=== PATIENT | female | born 1955 | race Caucasian/White ===

== ENCOUNTER 2019-05-21 20:18 | Emergency (ER) | payer BC ==
[2019-05-21 20:36] VITALS: BP 170/91; PULSE 76; RESP 18; TEMP 98.6
--- NOTE | 2019-05-21 20:45 | ED ---
ENT HPI - General Chief complaint: Dental/Oral Stated complaint: Facial swelling, headache Time Seen by Provider: 05/21/19 20:42 Source: patient, RN notes reviewed, old records reviewed Mode of arrival: ambulatory Limitations: no limitations - History of Present Illness Initial comments: This is a 64-year-old female DF for evaluation of tooth pain left frontal tooth pain with history of dental caries disease multiple root canals, thought that just yesterday was put on antibiotics and pain medication or significant swelling swelling of the left side of her face slowing down Into her jaw and then severe pain. Patient denies any fevers is able swallow and is able take medications as directed. She is complains of severe pain unable to get rest fior ble to get comfort. History of dental office before but this pain is worse and she's never had such swelling of her face MD complaint: tooth pain -: days(s) Location: tooth # (Front upper) Severity: severe Severity scale (1-10): 9 Quality: burning, stabbing, aching Consistency: constant Improves with: none Worsens with: none Context-Epistaxis: history of similar Context- Dental: poor dental care Associated Symptoms: pain with swallowing - Related Data Home Medications Medication Instructions Recorded Confirmed Celecoxib [CeleBREX] 200 mg PO DAILY 05/31/14 06/29/14 Cimetidine [Tagamet] 400 mg PO BID 05/31/14 06/29/14 Fenofibrate(Unknown Dose) 1 tab PO DAILY 05/31/14 06/29/14 Fioricet(Unknown Dose) 1 tab PO DIRECTED PRN 05/31/14 06/29/14 HYDROcodone/APAP 7.5-325MG [[place] 1 each PO Q6HR PRN 05/31/14 06/29/14 7.5-325] Propranolol [Inderal] 40 mg PO TID 05/31/14 06/29/14 Sertraline [Zoloft] 100 mg PO DAILY 05/31/14 06/29/14 buPROPion HCL [Wellbutrin] 200 mg PO BID 05/31/14 06/29/14 metFORMIN HCL [Glucophage] 500 mg PO DAILY 05/31/14 06/29/14 Allergies Allergy/AdvReac Type Severity Reaction Status Date / Time metal Allergy Rash/Hives Uncoded 05/21/19 20:35 Review of Systems ROS Statement: Those systems with pertinent positive or pertinent negative responses have been documented in the HPI. ROS Other: All systems not noted in ROS Statement are negative. Past Medical History Past Medical History: Cancer, Diabetes Mellitus, GERD/Reflux, Hypertension, Osteoarthritis (OA) Additional Past Medical History / Comment(s): Hx skin cancer, wound top of head, History of Any Multi-Drug Resistant Organisms: MRSA Date of last positivie culture/infection: 11/25/15 MDRO Source:: Abdomen Past Surgical History: Appendectomy, Back Surgery, Cholecystectomy, Hysterectom y, Joint Replacement, Orthopedic Surgery Additional Past Surgical History / Comment(s): Plantar fascitis rt.foot, rosanna knee replacement, cervical fusion with plate Past Anesthesia/Blood Transfusion Reactions: No Reported Reaction Past Psychological History: Depression Smoking Status: Never smoker Past Alcohol Use History: None Reported Past Drug Use History: None Reported General Exam Limitations: no limitations General appearance: alert, in no apparent distress Head exam: Present: atraumatic, normocephalic, normal inspection Eye exam: Present: normal appearance, PERRL, EOMI. Absent: scleral icterus, conjunctival injection, periorbital swelling ENT exam: Present: normal exam, mucous membranes moist, other (Left frontal tooth does have tenderness to touch no palpable or seen abscess) Neck exam: Present: normal inspection. Absent: tenderness, meningismus, lymphadenopathy Respiratory exam: Present: normal lung sounds bilaterally. Absent: respiratory distress, wheezes, rales, rhonchi, stridor Cardiovascular Exam: Present: regular rate, normal rhythm, normal heart sounds. Absent: systolic murmur, diastolic murmur, rubs, gallop, clicks GI/Abdominal exam: Present: soft, normal bowel sounds. Absent: distended, tenderness, guarding, rebound, rigid Extremities exam: Present: normal inspection, full ROM, normal capillary refill. Absent: tenderness, pedal edema, joint swelling, calf tenderness Back exam: Present: normal inspection Neurological exam: Present: alert, oriented X3, CN II-XII intact Psychiatric exam: Present: normal affect, normal mood Skin exam: Present: warm, dry, intact, normal color. Absent: rash Course Vital Signs 05/21/19 20:32 Temperature 98.6 F Pulse Rate 76 Respiratory 18 Rate Blood Pressure 170/91 O2 Sat by Pulse 96 Oximetry - Reevaluation(s) Reevaluation #1: 05/21/19 23:57 Medical record is reviewed Reevaluation #2: 05/21/19 23:57 Pain is controlled Medical Decision Making - Medical Decision Making 64 female here with severe dental pain tooth pain. Pain is resolved here in the ER swelling is improved computed tomography scan is negative for significant abscess and patient can be discharged home - Lab Data Result diagrams: 05/21/19 21:44 05/21/19 21:44 Lab Results 05/21/19 05/21/19 Range/Units 21:44 21:44 WBC 4.9 (3.8-10.6) k/uL RBC 4.58 (3.80-5.40) m/uL Hgb 13.3 (11.4-16.0) gm/dL Hct 41.5 (34.0-46.0) % MCV 90.7 (80.0-100.0) fL MCH 29.1 (25.0-35.0) pg MCHC 32.1 (31.0-37.0) g/dL RDW 12.2 (11.5-15.5) % Plt Count 226 (150-450) k/uL Neutrophils % 80 % Lymphocytes % 10 % Monocytes % 5 % Eosinophils % 2 % Basophils % 1 % Neutrophils # 3.9 (1.3-7.7) k/uL Lymphocytes # 0.5 L (1.0-4.8) k/uL Monocytes # 0.3 (0-1.0) k/uL Eosinophils # 0.1 (0-0.7) k/uL Basophils # 0.1 (0-0.2) k/uL Sodium 141 (137-145) mmol/L Potassium 4.4 (3.5-5.1) mmol/L Chloride 107 (98-107) mmol/L Carbon Dioxide 26 (22-30) mmol/L Anion Gap 8 mmol/L BUN 17 (7-17) mg/dL Creatinine 0.69 (0.52-1.04) mg/dL Est GFR (CKD-EPI)AfAm >90 (>60 ml/min/1.73 sqM) Est GFR (CKD-EPI)NonAf >90 (>60 ml/min/1.73 sqM) Glucose 167 H (74-99) mg/dL Calcium 10.1 (8.4-10.2) mg/dL Phosphorus 4.5 (2.5-4.5) mg/dL Magnesium 1.6 (1.6-2.3) mg/dL Total Bilirubin 0.5 (0.2-1.3) mg/dL AST 70 H (14-36) U/L ALT 38 H (4-34) U/L Alkaline Phosphatase 84 (38-126) U/L Total Protein 7.2 (6.3-8.2) g/dL Albumin 4.3 (3.5-5.0) g/dL - Radiology Data Radiology results: report reviewed (CT facial bones is negative for significant acute disease), image reviewed Disposition Clinical Impression: Dental caries, Dental abscess Disposition: HOME SELF-CARE Condition: Good Instructions (If sedation given, give patient instructions): Dental Abscess (ED) Is patient prescribed a controlled substance at d/c from ED?: No Referrals: Ap Jenkins DO [Primary Care Provider] - 1-2 days
[2019-05-21] MEDS ORDERED: KETOROLAC 30 MG/ML 1 ML VIAL IVP STA (21:40)
[2019-05-21] MEDS ORDERED: DEXAMETHASONE SOD PHOSPHATE 10 MG/ML 1 ML VIAL IV STA (21:40)
[2019-05-21] MEDS ORDERED: AMPICILLIN-SULBACTAM 3 GM in SODIUM CHLORIDE 0.9% 100 ML IVPB STA (21:40)
[2019-05-21] MEDS ORDERED: SODIUM CHLORIDE 0.9% 1,000 ML IV STA (21:40)
[2019-05-21 22:01] LABS: Basophils # (A) 0.1 k/uL (0-0.2); Basophils % (A) 1 %; Eosinophils # (A) 0.1 k/uL (0-0.7); Eosinophils % (A) 2 %; HCT 41.5 % (34.0-46.0); HGB 13.3 gm/dL (11.4-16.0); Lymphocytes # (A) 0.5 k/uL (1.0-4.8); Lymphocytes % (A) 10 %; MCH 29.1 pg (25.0-35.0); MCHC 32.1 g/dL (31.0-37.0); MCV 90.7 fL (80.0-100.0); Mean Platelet Volume 7.3; Monocytes # (A) 0.3 k/uL (0-1.0); Monocytes % (A) 5 %; Neutrophils # (A) 3.9 k/uL (1.3-7.7); Neutrophils % (A) 80 %; Platelet Count 226 k/uL (150-450); RBC 4.58 m/uL (3.80-5.40); RDW 12.2 % (11.5-15.5); WBC 4.9 k/uL (3.8-10.6)
[2019-05-21 22:09] LABS: ALT 38 U/L (4-34); AST 70 U/L (14-36); African American GFR (CKD) >90 (>60 ml/min/1.73 sqM); Albumin 4.3 g/dL (3.5-5.0); Alkaline Phosphatase 84 U/L (38-126); Anion Gap 8 mmol/L; Blood Urea Nitrogen 17 mg/dL (7-17); Calcium 10.1 mg/dL (8.4-10.2); Carbon Dioxide 26 mmol/L (22-30); Chloride 107 mmol/L (98-107); Glucose 167 mg/dL (74-99); Magnesium 1.6 mg/dL (1.6-2.3); Non-African American GFR(CKD) >90 (>60 ml/min/1.73 sqM); Phosphorus 4.5 mg/dL (2.5-4.5); Potassium 4.4 mmol/L (3.5-5.1); Sodium 141 mmol/L (137-145); Total Bilirubin 0.5 mg/dL (0.2-1.3); Total Protein 7.2 g/dL (6.3-8.2)
--- NOTE | 2019-05-21 23:04 | CT ---
EXAMINATION TYPE: CT facial bones w con DATE OF EXAM: 05/21/2019 COMPARISON: HISTORY: dental abscess CT DLP: 762.3 mGycm Automated exposure control for dose reduction was used. CONTRAST: Performed with IV Contrast, patient injected with 100 mL of Isovue 300. Multiple axial sections were obtained from the bottom of the mandible to the top of the frontal sinus es with intravenous contrast. There is mild soft tissue swelling anterior to the left maxilla. The nasal bone is intact. Orbital ma rgins are intact. There is no retro-orbital mass. Maxilla is intact. The mandibular ring is intact. I see no fracture. Exam is limited due to metal artifact from the dent al work. I see no focal bone destruction. There is no pathologic enhancement. Temporomandibular joint s appear normal. There is normal aeration of the mastoid sinuses. There is fairly normal aeration of the paranasal sinuses. IMPRESSION: Negative CT scan of the facial bones. No evidence of an abscess. Minimal soft tissue swelling on the left side of the nose. No evidence of osteomyelitis. Exam limited due to metal artifact.
== END 2019-05-22 00:16 | disposition home or self-care (01) ==
LOC: EC 20:18
DX: K04.7 Periapical abscess without sinus (principal); K02.9 Dental caries, unspecified; E11.9 Type 2 diabetes mellitus without complications; I10 Essential (primary) hypertension; M19.90 Unspecified osteoarthritis, unspecified site; F32.9 Major depressive disorder, single episode, unspecified; Z91.048 Other nonmedicinal substance allergy status; Z79.1 Long term (current) use of non-steroidal anti-inflammatories (NSAID); Z79.84 Long term (current) use of oral hypoglycemic drugs; Z79.899 Other long term (current) drug therapy; Z86.14 Personal history of Methicillin resistant Staphylococcus aureus infection; Z96.653 Presence of artificial knee joint, bilateral; Z98.1 Arthrodesis status
CPT/HCPCS: 36415; 80053; 83735; 84100; 85025; 87040; 70487; 99284; 96365; 96375 ×2; 96361; J1100; J1885; J0295; Q9967

== ENCOUNTER → 2019-11-30 | Outpatient (CLI) | payer BC ==
--- NOTE | 2019-11-30 12:07 | XR ---
EXAMINATION TYPE: XR ankle complete RT DATE OF EXAM: 11/30/2019 COMPARISON: NONE HISTORY: Pain TECHNIQUE: Frontal, lateral and oblique images of the right ankle are obtained. COMPARISON: None. FINDINGS: There is no acute fracture/dislocation evident. The joint spaces appear within normal jackson its. The overlying soft tissue appears unremarkable. IMPRESSION: There is no acute fracture or dislocation seen.
== END | disposition home or self-care (01) ==
LOC: RADXRYALE 11:15
PROVIDERS: ATTEND Physician Assistant Medical
DX: M25.571 Pain in right ankle and joints of right foot (principal)

== ENCOUNTER → 2020-02-02 | Outpatient (CLI) | payer BC ==
--- NOTE | 2020-02-02 08:59 | XR ---
EXAMINATION TYPE: XR foot complete LT DATE OF EXAM: 02/02/2020 CLINICAL HISTORY: pain TECHNIQUE: Frontal, lateral and oblique images of the left foot are obtained. COMPARISON: None. FINDINGS: There is no acute fracture/dislocation evident. The joint spaces appear within normal jackson its. With bone spurring resulting in palpable abnormality. Plantar and dorsal calcaneal spurs. IMPRESSION: There is no acute fracture or dislocation. ICD 10 NO FRACTURE, INITIAL EVALUATION
== END | disposition home or self-care (01) ==
LOC: RADXRYALE 08:36
PROVIDERS: ATTEND Physician Assistant Medical
DX: M79.672 Pain in left foot (principal)

== ENCOUNTER 2021-01-06 17:37 | Emergency (ER) | payer BC ==
[2021-01-06 17:44] VITALS: TEMP 100.2
--- NOTE | 2021-01-06 17:50 | ED ---
General Adult HPI - General Chief complaint: Headache Stated complaint: cough/headache/sob Time Seen by Provider: 01/06/21 17:50 Source: patient Mode of arrival: ambulatory Limitations: no limitations - History of Present Illness Initial comments: Patient presents to the ED complaining of having a cough, congestion, headache, nausea and diarrhea for the past 4 days or so. Patient also states that she has felt feverish, although she states that her home thermometer has not recorded an elevated temperature. Patient states that she has a history of "tension headaches", and she states that she has had similar headaches in the past. Patient states that she has not been vaccinated for Covid. Patient denies known sick contact or recent travel abroad. Patient denies trauma or injury, sudden onset of headache, LOC, neck pain or stiffness, focal numbness/weakness/neuro deficit, visual changes, sore throat, chest pain, dyspnea, hemoptysis, palpitat ions, dizziness, vomiting, abdominal pain, bloody diarrhea or melena, dysuria/hematuria/urinary symptoms, rash, or any other symptoms or complaints. - Related Data Home Medications Medication Instructions Recorded Confirmed Celecoxib [CeleBREX] 200 mg PO HS 05/31/14 01/06/21 HYDROcodone/APAP 7.5-325MG [[place] 1 tab PO Q6HR PRN 05/31/14 01/06/21 7.5-325] Propranolol [Inderal] 80 mg PO DAILY 05/31/14 01/06/21 Butalb/APAP/Caff 50-325-40Mg 1 tab PO TID PRN 01/06/21 01/06/21 [Fioricet 50-325-40] DULoxetine HCL [Cymbalta] 60 mg PO DAILY 01/06/21 01/06/21 Fenofibrate Nanocrystallized 145 mg PO HS 01/06/21 01/06/21 [Fenofibrate] Gabapentin 600 mg PO HS 01/06/21 01/06/21 Glucosamine/Chondr Dempsey A Sod [Osteo 1 tab PO DAILY 01/06/21 01/06/21 Bi-Flex Caplet] Multivit-Min/Iron/Folic/Lutein 1 tab PO DAILY 01/06/21 01/06/21 [Centrum Silver Women Tablet] Omeprazole 20 mg PO DAILY 01/06/21 01/06/21 Propranolol [Inderal] 40 mg PO HS 01/06/21 01/06/21 Rosuvastatin Calcium [Crestor] 40 mg PO HS 01/06/21 01/06/21 buPROPion SR [Wellbutrin SR] 150 mg PO BID 01/06/21 01/06/21 tiZANidine HCL 4 mg PO HS 01/06/21 01/06/21 traZODone HCL [Desyrel] 50 mg PO HS 01/06/21 01/06/21 Allergies Allergy/AdvReac Type Severity Reaction Status Date / Time metal Allergy Rash/Hives Uncoded 01/06/21 18:59 Review of Systems ROS Statement: Those systems with pertinent positive or pertinent negative responses have been documented in the HPI. ROS Other: All systems not noted in ROS Statement are negative. Past Medical History Past Medical History: Cancer, Diabetes Mellitus, GERD/Reflux, Hypertension, Osteoarthritis (OA) Additional Past Medical History / Comment(s): Hx skin cancer, wound top of head, History of Any Multi-Drug Resistant Organisms: MRSA Date of last positivie culture/infection: 11/25/15 MDRO Source:: Abdomen Past Surgical History: Appendectomy, Back Surgery, Cholecystectomy, Hysterectomy, Joint Replacement, Orthopedic Surgery Additional Past Surgical History / Comment(s): Plantar fascitis rt.foot, rosanna knee replacement, cervical fusion with plate Past Anesthesia/Blood Transfusion Reactions: No Reported Reaction Past Psychological History: Depression Smoking Status: Never smoker Past Alcohol Use History: None Reported Past Drug Use History: None Reported General Exam Limitations: no limitations General appearance: alert, in no apparent distress Head exam: Present: atraumatic, normocephalic Eye exam: Present: normal appearance, PERRL, EOMI ENT exam: Present: normal oropharynx, mucous membranes moist Neck exam: Present: other (Trachea is in midline; no nuchal rigidity or meningeal signs are present on examination). Absent: tenderness, meningismus Respiratory exam: Present: normal lung sounds bilaterally. Absent: respiratory distress, wheezes, rales, rhonchi, stridor Cardiovascular Exam: Present: regular rate, normal rhythm, normal heart sounds, other (Normal radial pulses bilaterally) GI/Abdominal exam: Present: soft. Absent: distended, tenderness, guarding Extremities exam: Absent: tenderness, pedal edema, calf tenderness Back exam: Absent: CVA tenderness (R), CVA tenderness (L) Neurological exam: Present: alert, oriented X3, CN II-XII intact. Absent: motor sensory deficit Psychiatric exam: Present: normal affect, normal mood Skin exam: Present: warm, dry, intact, normal color Course Vital Signs 01/06/21 01/06/21 01/06/21 17:41 20:00 21:35 Temperature 100.2 F H Pulse Rate 96 80 90 Respiratory 18 20 16 Rate Blood Pressure 150/49 153/80 125/63 O2 Sat by Pulse 96 93 L 99 Oximetry - Reevaluation(s) Reevaluation #1: 01/06/21 19:14 Patient meets criteria for monoclonal antibody treatment for Covid. I discussed the risks and benefits of treatment, and she agrees with monoclonal antibody infusion at this time. 01/06/21 21:31 Patient received monoclonal antibody infusion in the ED without any reaction or complication. Patient denies development of any new symptoms while in the ED. Patient remains alert and breathing comfortably with a normal/borderline low O2 sat. Patient was counseled about Covid pneumonia, and she feels comfortable going home at this time. Patient was instructed to have a low threshold for return to the emergency department, and she was instructed to return should she develop shortness of breath or new or worsening symptoms. Patient feels comfortable with this plan. EKG Findings - EKG Comments: EKG Findings:: Normal sinus rhythm, ventricular rate of 99 bpm, no ectopy, normal [place] and QRS intervals, normal QT interval, minimal voltage criteria for LVH, nonspecific ST abnormality, normal axis Medical Decision Making - Medical Decision Making Patient's chest x-ray shows findings of pneumonia. Patient's Covid test is positive. The rest of the patient's labs are consistent with Covid infection. Patient is breathing comfortably in the ED with normal/borderline low O2 sats. Patient feels comfortable going home at this time, and agrees to return to the emergency department should her symptoms worsen or should she develop dyspnea. Patient was given IV monoclonal antibody therapy in the ED. Patient feels comfortable this plan. - Lab Data Result diagrams: 01/06/21 18:16 01/06/21 18:16 Lab Results 01/06/21 01/06/21 01/06/21 Range/Units 18:16 18:16 18:16 WBC 3.2 L (3.8-10.6) k/uL RBC 4.59 (3.80-5.40) m/uL Hgb 13.9 (11.4-16.0) gm/dL Hct 40.7 (34.0-46.0) % MCV 88.8 (80.0-100.0) fL MCH 30.4 (25.0-35.0) pg MCHC 34.2 (31.0-37.0) g/dL RDW 12.1 (11.5-15.5) % Plt Count 201 (150-450) k/uL MPV 7.5 Neutrophils % 76 % Lymphocytes % 18 % Monocytes % 4 % Eosinophils % 0 % Basophils % 1 % Neutrophils # 2.4 (1.3-7.7) k/uL Lymphocytes # 0.6 L (1.0-4.8) k/uL Monocytes # 0.1 (0-1.0) k/uL Eosinophils # 0.0 (0-0.7) k/uL Basophils # 0.0 (0-0.2) k/uL PT 10.2 (9.0-12.0) sec INR 0.9 (<1.2) APTT 25.2 (22.0-30.0) sec Sodium 137 (137-145) mmol/L Potassium 4.0 (3.5-5.1) mmol/L Chloride 102 (98-107) mmol/L Carbon Dioxide 23 (22-30) mmol/L Anion Gap 12 mmol/L BUN 14 (7-17) mg/dL Creatinine 0.69 (0.52-1.04) mg/dL Est GFR (CKD-EPI)AfAm >90 (>60 ml/min/1.73 sqM) Est GFR (CKD-EPI)NonAf >90 (>60 ml/min/1.73 sqM) Glucose 121 H (74-99) mg/dL Plasma Lactic Acid [place] (0.7-2.0) mmol/L Calcium 9.3 (8.4-10.2) mg/dL Magnesium 1.5 L (1.6-2.3) mg/dL Total Bilirubin 0.7 (0.2-1.3) mg/dL AST 75 H (14-36) U/L ALT 51 H (4-34) U/L Alkaline Phosphatase 94 (38-126) U/L Lactate Dehydrogenase 838 H (313-618) U/L C-Reactive Protein 17.8 H (<1.0) mg/dL Total Protein 7.2 (6.3-8.2) g/dL Albumin 4.1 (3.5-5.0) g/dL Coronavirus (PCR) (Not Detectd) Influenza Type A RNA (Not Detectd) Influenza Type B (PCR) (Not Detectd) 01/06/21 01/06/21 01/06/21 Range/Units 18:16 18:16 18:16 WBC (3.8-10.6) k/uL RBC (3.80-5.40) m/uL Hgb (11.4-16.0) gm/dL Hct (34.0-46.0) % MCV (80.0-100.0) fL MCH (25.0-35.0) pg MCHC (31.0-37.0) g/dL RDW (11.5-15.5) % Plt Count (150-450) k/uL MPV Neutrophils % % Lymphocytes % % Monocytes % % Eosinophils % % Basophils % % Neutrophils # (1.3-7.7) k/uL Lymphocytes # (1.0-4.8) k/uL Monocytes # (0-1.0) k/uL Eosinophils # (0-0.7) k/uL Basophils # (0-0.2) k/uL PT (9.0-12.0) sec INR (<1.2) APTT (22.0-30.0) sec Sodium (137-145) mmol/L Potassium (3.5-5.1) mmol/L Chloride (98-107) mmol/L Carbon Dioxide (22-30) mmol/L Anion Gap mmol/L BUN (7-17) mg/dL Creatinine (0.52-1.04) mg/dL Est GFR (CKD-EPI)AfAm (>60 ml/min/1.73 sqM) Est GFR (CKD-EPI)NonAf (>60 ml/min/1.73 sqM) Glucose (74-99) mg/dL Plasma Lactic Acid [place] 1.2 (0.7-2.0) mmol/L Calcium (8.4-10.2) mg/dL Magnesium (1.6-2.3) mg/dL Total Bilirubin (0.2-1.3) mg/dL AST (14-36) U/L ALT (4-34) U/L Alkaline Phosphatase (38-126) U/L Lactate Dehydrogenase (313-618) U/L C-Reactive Protein (<1.0) mg/dL Total Protein (6.3-8.2) g/dL Albumin (3.5-5.0) g/dL Coronavirus (PCR) Detected A (Not Detectd) Influenza Type A RNA Not Detected (Not Detectd) Influenza Type B (PCR) Not Detected (Not Detectd) - Radiology Data Radiology results: report reviewed (Chest x-ray: Patchy bibasilar airspace opacities which may represent pneumonia in the appropriate clinical setting) Disposition Clinical Impression: Pneumonia due to COVID-19 virus, COVID-19 Disposition: HOME SELF-CARE Condition: Stable Instructions (If sedation given, give patient instructions): Coronavirus Disease 2019 (COVID-19) Additional Instructions: Return to the ER immediately should you develop new or worsening pain, shortness of breath/trouble breathing, vomiting, feeling dizzy or faint, or new or worsening symptoms. Follow up closely with your primary care provider. Is patient prescribed a controlled substance at d/c from ED?: No Referrals: Ap Jenkins DO [Primary Care Provider] - 1-2 days Time of Disposition: 21:32
[2021-01-06] MEDS ORDERED: METOCLOPRAMIDE 5 MG/ML 2 ML VIAL IVP STA (17:59)
[2021-01-06] MEDS ORDERED: SODIUM CHLORIDE 0.9% 1,000 ML IV ONE (17:59)
[2021-01-06] MEDS ORDERED: KETOROLAC 15 MG/ML 1 ML VIAL IVP STA (17:59)
[2021-01-06] MEDS ORDERED: diphenhydrAMINE 50 MG/ML 1 ML VIAL IVP STA (18:00)
[2021-01-06 18:36] LABS: Basophils % (A) 1 %; Eosinophils % (A) 0 %; HCT 40.7 % (34.0-46.0); HGB 13.9 gm/dL (11.4-16.0); Lymphocytes # (A) 0.6 k/uL (1.0-4.8); Lymphocytes % (A) 18 %; MCH 30.4 pg (25.0-35.0); MCHC 34.2 g/dL (31.0-37.0); MCV 88.8 fL (80.0-100.0); Mean Platelet Volume 7.5; Monocytes # (A) 0.1 k/uL (0-1.0); Monocytes % (A) 4 %; Neutrophils # (A) 2.4 k/uL (1.3-7.7); Neutrophils % (A) 76 %; Platelet Count 201 k/uL (150-450); RBC 4.59 m/uL (3.80-5.40); RDW 12.1 % (11.5-15.5); WBC 3.2 k/uL (3.8-10.6)
--- NOTE | 2021-01-06 18:50 | XR ---
EXAMINATION TYPE: XR chest 1V portable DATE OF EXAM: 01/06/2021 COMPARISON: Chest radiograph 03/03/2015 HISTORY: Cough, headache, shortness of breath TECHNIQUE: Single frontal view of the chest is obtained. FINDINGS: Cardiomediastinal silhouette appears within normal limits. Patchy bibasilar airspace opacities. No pl eural effusion or pneumothorax. Postsurgical changes of the lower cervical spine appear unchanged. Ot herwise, the visualized osseous structures appear unchanged. IMPRESSION: Patchy bibasilar airspace opacities which may represent pneumonia in the appropriate clinical setting .
[2021-01-06 18:54] LABS: INR 0.9 (<1.2); Partial Thromboplastin Time 25.2 sec (22.0-30.0); Prothrombin Time 10.2 sec (9.0-12.0)
[2021-01-06 18:56] LABS: ALT 51 U/L (4-34); AST 75 U/L (14-36); African American GFR (CKD) >90 (>60 ml/min/1.73 sqM); Albumin 4.1 g/dL (3.5-5.0); Alkaline Phosphatase 94 U/L (38-126); Anion Gap 12 mmol/L; Blood Urea Nitrogen 14 mg/dL (7-17); Calcium 9.3 mg/dL (8.4-10.2); Carbon Dioxide 23 mmol/L (22-30); Chloride 102 mmol/L (98-107); Glucose 121 mg/dL (74-99); LDH 838 U/L (313-618); Magnesium 1.5 mg/dL (1.6-2.3); Non-African American GFR(CKD) >90 (>60 ml/min/1.73 sqM); Sodium 137 mmol/L (137-145); Total Bilirubin 0.7 mg/dL (0.2-1.3); Total Protein 7.2 g/dL (6.3-8.2)
[2021-01-06 19:09] LABS: C Reactive Protein 17.8 mg/dL (<1.0)
[2021-01-06] MEDS ORDERED: SODIUM CHLORIDE 0.9% 50 ML IVPB ONE (19:30)
[2021-01-06] MEDS ORDERED: CASIRIVIMAB/IMDEVIMAB (EUA) 1,200 MG in SODIUM CHLORIDE 0.9% 100 ML IVPB ONE (20:00)
[2021-01-06 21:37] VITALS: BP 125/63; PULSE 90; RESP 16
== END 2021-01-06 21:36 | disposition home or self-care (01) ==
LOC: EC 17:37
DX: U07.1 COVID-19 (principal); J12.82 Pneumonia due to coronavirus disease 2019; E11.9 Type 2 diabetes mellitus without complications; I10 Essential (primary) hypertension; K21.9 Gastro-esophageal reflux disease without esophagitis; M19.90 Unspecified osteoarthritis, unspecified site; F32.9 Major depressive disorder, single episode, unspecified; Z79.1 Long term (current) use of non-steroidal anti-inflammatories (NSAID); Z79.899 Other long term (current) drug therapy; Z85.828 Personal history of other malignant neoplasm of skin; Z90.49 Acquired absence of other specified parts of digestive tract; Z96.653 Presence of artificial knee joint, bilateral
CPT/HCPCS: 36415; 93005; 80053; 82728; 83605; 83615; 83735; 85025; 85610; 85730; 86140; 87040; 87502; 84145; 87635; 71045; 96374; 96375 ×3; 96361; 99284; J1200; J2765; J1885; Q0243

== ENCOUNTER → 2021-03-28 | Outpatient (CLI) | payer BC ==
--- NOTE | 2021-03-28 16:59 | XR ---
EXAMINATION TYPE: XR foot complete LT DATE OF EXAM: 03/28/2021 COMPARISON: 02/02/2020 HISTORY: Foot pain TECHNIQUE: Three-view left foot FINDINGS: Large plantar and Achilles tendon calcaneal heel spurs are present. There is some spurring of the tarsometatarsal joint space. This may be similar to the comparison. Mild subluxation of the proximal phalanx of the great toe is present. Some hallux valgus deformity is present. IMPRESSION: 1. No acute osseous abnormality. 2. Degenerative changes. 3. Mild Hallux valgus deformity
== END | disposition home or self-care (01) ==
LOC: RADXRYALE 08:42
PROVIDERS: ATTEND Physician Assistant Medical
DX: M19.072 Primary osteoarthritis, left ankle and foot (principal); M20.12 Hallux valgus (acquired), left foot